=== PATIENT | female | born 1960 | race Caucasian/White ===

== ENCOUNTER 2020-09-16 20:18 | Inpatient (IN) | payer MEDICAID ==
[~2020-09-16] VITALS: Ht 180.3 cm; Wt 79.1 kg
--- NOTE | 2020-09-16 22:05 | NUR ---
PT PRESENTS TO ER FOR N/V, GENERALIZED PAIN, RIGHT FLANK PAIN, AND COUGH. PT STATES THIS HAS BEEN GOING ON FOR A WEEK, PT DID NOT RECEIVE COVID VACCINE, PT A/OX4 AT THIS TIME, PT HAD EMESIS BAG THAT HAD MODERATE AMOUNT OF VOMIT IN IT THAT WAS GREEN COLORED, PT STATES SHE IS COUGHING UP SOME YELLOW PHLEM.
[2020-09-16] MEDS ORDERED: SODIUM CHLORIDE 0.9% 1,000ML IVBOLUS ONE (22:30)
[2020-09-16] MEDS ORDERED: HYDROmorphone 1 MG/ML, 1ML INJ IVPush PRN (22:30)
[2020-09-16] MEDS ORDERED: HYDROmorphone 2 MG/ML, 1ML ONE (22:36)
[2020-09-16 22:57] LABS: BASOPHILS % (AUTO) 0 % (0-1); EOSINOPHILS % (AUTO) 0 % (1-7); LYMPHOCYTES % (AUTO) 19 % (22-44); MEAN CORPUSCULAR HEMOGLOBIN 31.5 pg (27.0-34.8); MEAN CORPUSCULAR HGB CONC 34.3 g/dL (32.4-35.8); MEAN PLATELET VOLUME 8.6 fL (7.4-10.4); MONOCYTES % (AUTO) 10 % (2-9); NEUTROPHILS % (AUTO) 71 % (42-75); PLATELET COUNT 130 x10^3/uL (130-400); RED CELL DISTRIBUTION WIDTH 12.4 % (9.6-15.2)
[2020-09-16 22:59] LABS: ALANINE AMINOTRANSFERASE 29 U/L (12-78); ALBUMIN 3.9 g/dL (3.4-5.0); ANION GAP 13 mmol/L (5-15); CALCIUM 8.6 mg/dL (8.5-10.1); CHLORIDE 98 mmol/L (98-107); CREATININE 1.33 mg/dL (0.55-1.02)
[2020-09-16 23:01] LABS: ALKALINE PHOSPHATASE 85 U/L (45-117); BILIRUBIN,TOTAL 0.4 mg/dL (0.2-1.0); TOTAL PROTEIN 8.6 g/dL (6.4-8.2)
[2020-09-17] MEDS ORDERED: DOXYCYCLINE 100 MG in DEXTROSE 5% 250 ML IV ONE (00:30)
[2020-09-17] MEDS ORDERED: SODIUM CHLORIDE 0.9% 1,000 ML IV SCH (00:30)
[2020-09-17 01:09] LABS: MICROSCOPIC INDICATED
[2020-09-17] MEDS ORDERED: ACETAMINOPHEN 500 MG TABLET ONE (01:56)
[2020-09-17] MEDS ORDERED: NS + 20MEQ KCL 0 ML IV ONE (01:57)
[2020-09-17] MEDS ORDERED: CEFTRIAXONE 1,000 MG in DEXTROSE 5% 50 ML IVPB ONE (02:00)
[2020-09-17] MEDS ORDERED: ACETAMINOPHEN 500 MG TABLET PO ONE (02:00)
[2020-09-17] MEDS ORDERED: POTASSIUM CHLORIDE 20 MEQ in SODIUM CHLORIDE 0.9% 250 ML IV ONE (02:00)
[2020-09-17] MEDS ORDERED: LABETALOL 5MG/ML, 20ML IVPush PRN (03:30)
[2020-09-17 03:38] VITALS: BP 105/61
[2020-09-17] MEDS: DEXAMETHASONE 4 MG/ML, 1ML IVPush SCH (04:31)
[2020-09-17] MEDS: ENOXAPARIN 40 MG/0.4 ML SQ SCH (04:31)
[2020-09-17 04:44] LABS: AMPHETAMINE SCREEN, URINE Negative (Negative); BARBITURATE SCREEN, URINE Negative (Negative); BENZODIAZEPINE SCREEN, URINE Negative (Negative); CANNABINOID SCREEN, URINE Positive (Negative); COCAINE SCREEN, URINE Negative (Negative); METHADONE SCREEN, URINE Negative (Negative); OPIATE SCREEN, URINE Positive (Negative)
[2020-09-17] MEDS: HYDROmorphone 2 MG/ML, 1ML IVPush PRN ×2 (04:45→22:36)
[2020-09-17 08:00] VITALS: BP 109/99
[2020-09-17] MEDS: DOXYCYCLINE 100MG TABLET PO SCH ×2 (09:00→20:22)
[2020-09-17 09:22] LABS: CHLORIDE 105 mmol/L (98-107)
[2020-09-17 09:26] LABS: ANION GAP 7 mmol/L (5-15)
[2020-09-17] MEDS ORDERED: DEXAMETHASONE 4 MG/ML, 5ML ONE (09:34)
[2020-09-17] MEDS ORDERED: HYDROcodone/APAP 5/325 TABLET PO PRN (12:00)
[2020-09-17 12:43] VITALS: BP 98/76
[2020-09-17] MEDS: ONDANSETRON 2MG/ML, 2ML IVPush PRN (15:01)
[2020-09-17] MEDS: ACETAMINOPHEN 325 MG TABLET PO PRN ×2 (15:01→20:22)
[2020-09-17] MEDS ORDERED: POTASSIUM PHOSPHATE 44 MEQ in SODIUM CHLORIDE 0.9% 500 ML IV ONE (16:30)
[2020-09-17 20:27] VITALS: BP 102/64
[2020-09-18] MEDS: ACETAMINOPHEN 325 MG TABLET PO PRN ×2 (00:03→00:04)
[2020-09-18 00:09] VITALS: BP 106/69
[2020-09-18] MEDS: CEFTRIAXONE 1,000 MG in DEXTROSE 5% 50 ML IVPB SCH (02:55)
[2020-09-18] MEDS: ENOXAPARIN 40 MG/0.4 ML SQ SCH (03:17)
[2020-09-18 06:52] LABS: CHLORIDE 102 mmol/L (98-107)
[2020-09-18 06:54] LABS: BASOPHILS % (AUTO) 0 % (0-1); EOSINOPHILS % (AUTO) 0 % (1-7); LYMPHOCYTES % (AUTO) 26 % (22-44); MEAN CORPUSCULAR HEMOGLOBIN 31.6 pg (27.0-34.8); MEAN CORPUSCULAR HGB CONC 34.7 g/dL (32.4-35.8); MONOCYTES % (AUTO) 6 % (2-9); NEUTROPHILS % (AUTO) 68 % (42-75); PLATELET COUNT 104 x10^3/uL (130-400); RED BLOOD COUNT 4.06 x10^6/uL (3.82-5.3); RED CELL DISTRIBUTION WIDTH 12.6 % (9.6-15.2)
[2020-09-18 06:56] LABS: ANION GAP 10 mmol/L (5-15); CALCIUM 8.1 mg/dL (8.5-10.1)
[2020-09-18 08:43] VITALS: BP 102/62
[2020-09-18] MEDS ORDERED: POTASSIUM CHLORIDE 40 MEQ in SODIUM CHLORIDE 0.9% 500 ML IV ONE (09:00)
[2020-09-18] MEDS ORDERED: MAGNESIUM SULFATE 3 GM in SODIUM CHLORIDE 0.9% 100 ML IV ONE (09:00)
[2020-09-18] MEDS: DEXAMETHASONE 4 MG/ML, 1ML IVPush SCH (09:52)
[2020-09-18] MEDS: ZINC SULFATE 220 MG CAPSULE PO SCH (09:53)
[2020-09-18] MEDS: DOXYCYCLINE 100MG TABLET PO SCH ×2 (09:53→21:00)
[2020-09-18] MEDS: CHOLECALCIFEROL 1,000 UNIT TABLET PO SCH (09:53)
[2020-09-18] MEDS: THIAMINE 100MG TABLET PO SCH ×2 (09:54→21:38)
[2020-09-18] MEDS ORDERED: REMDESIVIR 200 MG in SODIUM CHLORIDE 0.9% 250 ML IVPB ONE (12:00)
[2020-09-18 12:19] LABS: ALANINE AMINOTRANSFERASE 22 U/L (12-78); ALBUMIN 2.6 g/dL (3.4-5.0); ALKALINE PHOSPHATASE 56 U/L (45-117); BILIRUBIN, DIRECT < 0.1 mg/dL (0.1-0.2); BILIRUBIN,INDIRECT 0.2 mg/dL (0.0-2.0); BILIRUBIN,TOTAL 0.3 mg/dL (0.2-1.0); TOTAL PROTEIN 6.4 g/dL (6.4-8.2)
[2020-09-18 14:11] VITALS: BP 98/65
[2020-09-18] MEDS ORDERED: OMNIPAQUE 350 MG/ML, 100ML BOTTLE ONE (18:00)
[2020-09-18] MEDS: ASCORBIC ACID 500 MG TABLET PO SCH (18:09)
[2020-09-18 20:43] VITALS: BP 95/64
[2020-09-18] MEDS: MELATONIN 5 MG TABLET PO SCH (21:00)
[2020-09-18] MEDS: HYDROmorphone 2 MG/ML, 1ML IVPush PRN (21:39)
[2020-09-18] MEDS: ONDANSETRON 2MG/ML, 2ML IVPush PRN (22:39)
[2020-09-19 00:48] VITALS: BP 92/61
[2020-09-19] MEDS: CEFTRIAXONE 1,000 MG in DEXTROSE 5% 50 ML IVPB SCH (02:33)
[2020-09-19] MEDS: ENOXAPARIN 40 MG/0.4 ML SQ SCH (02:33)
[2020-09-19 04:31] LABS: BASOPHILS % (AUTO) 0 % (0-1); EOSINOPHILS % (AUTO) 0 % (1-7); LYMPHOCYTES % (AUTO) 22 % (22-44); MEAN CORPUSCULAR HEMOGLOBIN 31.5 pg (27.0-34.8); MEAN CORPUSCULAR HGB CONC 34.5 g/dL (32.4-35.8); MEAN PLATELET VOLUME 8.1 fL (7.4-10.4); MONOCYTES % (AUTO) 10 % (2-9); NEUTROPHILS % (AUTO) 69 % (42-75); PLATELET COUNT 121 x10^3/uL (130-400); RED BLOOD COUNT 4.21 x10^6/uL (3.82-5.3); RED CELL DISTRIBUTION WIDTH 12.4 % (9.6-15.2)
[2020-09-19 04:40] LABS: ALBUMIN 2.3 g/dL (3.4-5.0); ANION GAP 7 mmol/L (5-15); CALCIUM 8.2 mg/dL (8.5-10.1); CHLORIDE 102 mmol/L (98-107)
[2020-09-19 04:44] LABS: ALANINE AMINOTRANSFERASE 34 U/L (12-78); ALKALINE PHOSPHATASE 58 U/L (45-117); BILIRUBIN,TOTAL 0.4 mg/dL (0.2-1.0); CREATININE 0.52 mg/dL (0.55-1.02); TOTAL PROTEIN 6.3 g/dL (6.4-8.2)
[2020-09-19 07:38] VITALS: BP 104/65
[2020-09-19] MEDS ORDERED: POTASSIUM PHOSPHATE 22 MEQ in SODIUM CHLORIDE 0.9% 500 ML IV ONE (10:00)
[2020-09-19] MEDS: ASCORBIC ACID 500 MG TABLET PO SCH ×2 (10:05→17:00)
[2020-09-19] MEDS: ZINC SULFATE 220 MG CAPSULE PO SCH (10:06)
[2020-09-19] MEDS: THIAMINE 100MG TABLET PO SCH ×2 (10:06→21:29)
[2020-09-19] MEDS: CHOLECALCIFEROL 1,000 UNIT TABLET PO SCH (10:06)
[2020-09-19] MEDS: DEXAMETHASONE 4 MG TABLET PO SCH (10:06)
[2020-09-19] MEDS: DOXYCYCLINE 100MG TABLET PO SCH ×2 (10:06→21:29)
[2020-09-19] MEDS: HYDROmorphone 2 MG/ML, 1ML IVPush PRN ×3 (10:20→22:44)
[2020-09-19 10:36] LABS: D-DIMER 0.37 ug/mlFEU (0.00-0.52)
[2020-09-19 10:43] LABS: C-REACTIVE PROTEIN, QUANT 6.9 mg/dL (0.02-0.49)
[2020-09-19 11:10] VITALS: BP 92/61
[2020-09-19] MEDS: ONDANSETRON 2MG/ML, 2ML IVPush PRN ×2 (12:30→20:02)
[2020-09-19 12:55] VITALS: BP 102/62
[2020-09-19] MEDS: REMDESIVIR 100 MG in SODIUM CHLORIDE 0.9% 250 ML IVPB SCH (13:04)
[2020-09-19] MEDS ORDERED: GUAIFENESIN/COD200MG-20MG/10ML LIQUID PO PRN (17:30)
[2020-09-19 20:07] VITALS: BP 91/58
[2020-09-19] MEDS: MELATONIN 5 MG TABLET PO SCH (21:00)
[2020-09-20 02:46] VITALS: BP 98/60
[2020-09-20] MEDS: CEFTRIAXONE 1,000 MG in DEXTROSE 5% 50 ML IVPB SCH (02:57)
[2020-09-20] MEDS: ENOXAPARIN 40 MG/0.4 ML SQ SCH (02:57)
[2020-09-20 06:08] LABS: ALANINE AMINOTRANSFERASE 60 U/L (12-78); ALBUMIN 2.4 g/dL (3.4-5.0); ANION GAP 9 mmol/L (5-15); CALCIUM 8.7 mg/dL (8.5-10.1); CHLORIDE 105 mmol/L (98-107)
[2020-09-20 06:11] LABS: ALKALINE PHOSPHATASE 63 U/L (45-117); BILIRUBIN,TOTAL 0.3 mg/dL (0.2-1.0); CREATININE 0.42 mg/dL (0.55-1.02); TOTAL PROTEIN 6.4 g/dL (6.4-8.2)
[2020-09-20] MEDS: HYDROmorphone 2 MG/ML, 1ML IVPush PRN (06:39)
[2020-09-20] MEDS: ONDANSETRON 2MG/ML, 2ML IVPush PRN (06:50)
[2020-09-20 08:11] VITALS: BP 89/52
[2020-09-20] MEDS: ZINC SULFATE 220 MG CAPSULE PO SCH (10:55)
[2020-09-20] MEDS: THIAMINE 100MG TABLET PO SCH ×2 (10:55→21:04)
[2020-09-20] MEDS: ASCORBIC ACID 500 MG TABLET PO SCH ×2 (10:55→17:15)
[2020-09-20] MEDS: DEXAMETHASONE 4 MG TABLET PO SCH (10:55)
[2020-09-20] MEDS: DOXYCYCLINE 100MG TABLET PO SCH ×2 (10:56→21:03)
[2020-09-20] MEDS: CHOLECALCIFEROL 1,000 UNIT TABLET PO SCH (10:56)
[2020-09-20] MEDS: REMDESIVIR 100 MG in SODIUM CHLORIDE 0.9% 250 ML IVPB SCH (12:27)
[2020-09-20] MEDS ORDERED: HYDROmorphone 2 MG/ML, 1ML IVPush PRN (12:30)
[2020-09-20 13:02] VITALS: BP 93/61
[2020-09-20] MEDS: APAP/CODEINE 300/30MG TABLET PO PRN ×2 (13:49→21:29)
[2020-09-20] MEDS: MELATONIN 5 MG TABLET PO SCH (21:00)
[2020-09-20] MEDS: ACETAMINOPHEN 325 MG TABLET PO PRN (21:03)
[2020-09-20 21:30] VITALS: BP 113/75
[2020-09-21 01:14] VITALS: BP 136/72
[2020-09-21] MEDS: CEFTRIAXONE 1,000 MG in DEXTROSE 5% 50 ML IVPB SCH (02:28)
[2020-09-21] MEDS: APAP/CODEINE 300/30MG TABLET PO PRN ×4 (02:28→21:03)
[2020-09-21] MEDS: ENOXAPARIN 40 MG/0.4 ML SQ SCH (03:14)
[2020-09-21 06:57] LABS: ANION GAP 7 mmol/L (5-15); CHLORIDE 103 mmol/L (98-107)
[2020-09-21 07:00] LABS: CALCIUM 8.7 mg/dL (8.5-10.1)
[2020-09-21 07:01] LABS: ALANINE AMINOTRANSFERASE 91 U/L (12-78); ALBUMIN 2.5 g/dL (3.4-5.0); ALKALINE PHOSPHATASE 71 U/L (45-117); BILIRUBIN,TOTAL 0.3 mg/dL (0.2-1.0); CREATININE 0.53 mg/dL (0.55-1.02); TOTAL PROTEIN 6.4 g/dL (6.4-8.2)
[2020-09-21 07:49] VITALS: BP 114/81
[2020-09-21] MEDS: DOXYCYCLINE 100MG TABLET PO SCH ×2 (09:08→21:03)
[2020-09-21] MEDS: THIAMINE 100MG TABLET PO SCH ×2 (09:08→21:03)
[2020-09-21] MEDS: ASCORBIC ACID 500 MG TABLET PO SCH (09:08)
[2020-09-21] MEDS: ZINC SULFATE 220 MG CAPSULE PO SCH (09:08)
[2020-09-21] MEDS: CHOLECALCIFEROL 1,000 UNIT TABLET PO SCH (09:08)
[2020-09-21] MEDS: DEXAMETHASONE 4 MG TABLET PO SCH (09:08)
[2020-09-21 12:05] VITALS: BP 106/67
[2020-09-21] MEDS: ONDANSETRON 2MG/ML, 2ML IVPush PRN (13:08)
[2020-09-21] MEDS: REMDESIVIR 100 MG in SODIUM CHLORIDE 0.9% 250 ML IVPB SCH (13:08)
[2020-09-21] MEDS: PANTOPRAZOLE 40MG TABLET PO SCH ×2 (15:52→17:12)
[2020-09-21 20:20] VITALS: BP 105/77
[2020-09-21] MEDS: MELATONIN 5 MG TABLET PO SCH (21:00)
[2020-09-22 01:05] VITALS: BP 117/71
[2020-09-22] MEDS: APAP/CODEINE 300/30MG TABLET PO PRN ×4 (01:58→21:28)
[2020-09-22] MEDS: CEFTRIAXONE 1,000 MG in DEXTROSE 5% 50 ML IVPB SCH (01:58)
[2020-09-22 05:52] LABS: BASOPHILS % (AUTO) 0 % (0-1); EOSINOPHILS % (AUTO) 0 % (1-7); LYMPHOCYTES % (AUTO) 11 % (22-44); MEAN CORPUSCULAR HEMOGLOBIN 31.6 pg (27.0-34.8); MEAN CORPUSCULAR HGB CONC 34.8 g/dL (32.4-35.8); MEAN PLATELET VOLUME 8.1 fL (7.4-10.4); MONOCYTES % (AUTO) 15 % (2-9); NEUTROPHILS % (AUTO) 74 % (42-75); PLATELET COUNT 278 x10^3/uL (130-400); RED CELL DISTRIBUTION WIDTH 12.4 % (9.6-15.2)
[2020-09-22 05:58] LABS: CHLORIDE 103 mmol/L (98-107)
[2020-09-22 06:04] LABS: ALANINE AMINOTRANSFERASE 92 U/L (12-78); ALBUMIN 2.4 g/dL (3.4-5.0); ALKALINE PHOSPHATASE 71 U/L (45-117); ANION GAP 7 mmol/L (5-15); BILIRUBIN,TOTAL 0.3 mg/dL (0.2-1.0); CALCIUM 8.4 mg/dL (8.5-10.1); CREATININE 0.48 mg/dL (0.55-1.02); TOTAL PROTEIN 6.2 g/dL (6.4-8.2)
[2020-09-22] MEDS: PANTOPRAZOLE 40MG TABLET PO SCH ×2 (07:07→16:36)
[2020-09-22] MEDS: ENOXAPARIN 40 MG/0.4 ML SQ SCH (07:07)
[2020-09-22] MEDS: ASCORBIC ACID 500 MG TABLET PO SCH (08:03)
[2020-09-22] MEDS: ZINC SULFATE 220 MG CAPSULE PO SCH (08:04)
[2020-09-22] MEDS: CHOLECALCIFEROL 1,000 UNIT TABLET PO SCH (08:04)
[2020-09-22] MEDS: THIAMINE 100MG TABLET PO SCH ×3 (08:04→21:27)
[2020-09-22] MEDS: DEXAMETHASONE 4 MG TABLET PO SCH (08:50)
[2020-09-22] MEDS: DOXYCYCLINE 100MG TABLET PO SCH ×2 (08:50→21:27)
[2020-09-22 09:02] VITALS: BP 107/67
[2020-09-22 12:00] VITALS: BP 121/62
[2020-09-22] MEDS: REMDESIVIR 100 MG in SODIUM CHLORIDE 0.9% 250 ML IVPB SCH (12:15)
[2020-09-22 20:38] VITALS: BP 120/74
[2020-09-22] MEDS: MELATONIN 5 MG TABLET PO SCH (23:30)
[2020-09-23] VITALS: BP 123/74
[2020-09-23 00:31] VITALS: BP 111/70
[2020-09-23] MEDS: CEFTRIAXONE 1,000 MG in DEXTROSE 5% 50 ML IVPB SCH (02:07)
[2020-09-23] MEDS: ENOXAPARIN 40 MG/0.4 ML SQ SCH (07:54)
[2020-09-23] MEDS: PANTOPRAZOLE 40MG TABLET PO SCH ×2 (07:54→16:57)
[2020-09-23] MEDS: APAP/CODEINE 300/30MG TABLET PO PRN ×3 (07:54→20:46)
[2020-09-23 07:56] VITALS: BP 125/63
[2020-09-23] MEDS: THIAMINE 100MG TABLET PO SCH ×2 (08:00→20:45)
[2020-09-23] MEDS: CHOLECALCIFEROL 1,000 UNIT TABLET PO SCH (08:00)
[2020-09-23] MEDS: ASCORBIC ACID 500 MG TABLET PO SCH (08:00)
[2020-09-23] MEDS: ZINC SULFATE 220 MG CAPSULE PO SCH (10:17)
[2020-09-23] MEDS: DEXAMETHASONE 4 MG TABLET PO SCH (10:17)
[2020-09-23] MEDS: DOXYCYCLINE 100MG TABLET PO SCH ×2 (10:17→20:45)
[2020-09-23 14:09] VITALS: BP 124/66
[2020-09-23 21:48] VITALS: BP 101/68
[2020-09-23] MEDS: MELATONIN 5 MG TABLET PO SCH (23:50)
[2020-09-24 02:27] VITALS: BP 118/62
[2020-09-24] MEDS: CEFTRIAXONE 1,000 MG in DEXTROSE 5% 50 ML IVPB SCH (02:33)
[2020-09-24] MEDS: APAP/CODEINE 300/30MG TABLET PO PRN ×2 (02:34→09:51)
[2020-09-24] MEDS: PANTOPRAZOLE 40MG TABLET PO SCH ×2 (06:36→19:32)
[2020-09-24] MEDS: ENOXAPARIN 40 MG/0.4 ML SQ SCH (06:36)
[2020-09-24 08:30] VITALS: BP 113/77
[2020-09-24] MEDS: CHOLECALCIFEROL 1,000 UNIT TABLET PO SCH (09:40)
[2020-09-24] MEDS: DEXAMETHASONE 4 MG TABLET PO SCH (09:40)
[2020-09-24] MEDS: DOXYCYCLINE 100MG TABLET PO SCH ×2 (09:41→20:43)
[2020-09-24] MEDS: ASCORBIC ACID 500 MG TABLET PO SCH (09:41)
[2020-09-24] MEDS: ZINC SULFATE 220 MG CAPSULE PO SCH (09:41)
[2020-09-24] MEDS: THIAMINE 100MG TABLET PO SCH ×2 (09:41→20:43)
[2020-09-24 14:20] VITALS: BP 141/86
[2020-09-24] MEDS ORDERED: THIA100T67 PO (14:49)
[2020-09-24] MEDS ORDERED: ZINC220C8 PO (14:49)
[2020-09-24] MEDS ORDERED: ASCO500T9 PO (14:49)
[2020-09-24] MEDS ORDERED: CHOL10003 PO (14:49)
[2020-09-24] MEDS ORDERED: KETOROLAC 30 MG/1 ML IVPush PRN (16:30)
[2020-09-24] MEDS: ACETAMINOPHEN 325 MG TABLET PO PRN (17:19)
[2020-09-24] MEDS: DIPHENHYDRAMINE 50 MG/ML, 1ML IVPush PRN (19:32)
[2020-09-24] MEDS: METOCLOPRAMIDE 5 MG/ML, 2ML IVPush SCH (19:33)
[2020-09-24] MEDS: MELATONIN 5 MG TABLET PO SCH (20:43)
[2020-09-24 21:15] VITALS: BP 109/79
[2020-09-25 00:16] VITALS: BP 106/80
[2020-09-25] MEDS: CEFTRIAXONE 1,000 MG in DEXTROSE 5% 50 ML IVPB SCH (02:06)
[2020-09-25] MEDS: METOCLOPRAMIDE 5 MG/ML, 2ML IVPush SCH ×5 (02:06→23:07)
[2020-09-25] MEDS: APAP/CODEINE 300/30MG TABLET PO PRN (02:08)
[2020-09-25 08:24] VITALS: BP 128/75
[2020-09-25] MEDS: ZINC SULFATE 220 MG CAPSULE PO SCH (09:08)
[2020-09-25] MEDS: ASCORBIC ACID 500 MG TABLET PO SCH (09:08)
[2020-09-25] MEDS: DOXYCYCLINE 100MG TABLET PO SCH ×2 (09:08→20:21)
[2020-09-25] MEDS: THIAMINE 100MG TABLET PO SCH ×2 (09:08→20:21)
[2020-09-25] MEDS: ENOXAPARIN 40 MG/0.4 ML SQ SCH (09:08)
[2020-09-25] MEDS: PANTOPRAZOLE 40MG TABLET PO SCH ×2 (09:08→17:32)
[2020-09-25] MEDS: DEXAMETHASONE 4 MG TABLET PO SCH (09:09)
[2020-09-25] MEDS: CHOLECALCIFEROL 1,000 UNIT TABLET PO SCH (09:09)
[2020-09-25] MEDS: DIPHENHYDRAMINE 50 MG/ML, 1ML IVPush PRN ×4 (09:10→23:07)
[2020-09-25 12:59] VITALS: BP 152/88
[2020-09-25] MEDS: ACETAMINOPHEN 325 MG TABLET PO PRN ×2 (15:01→20:28)
[2020-09-25 20:20] VITALS: BP 110/74
[2020-09-25] MEDS: MELATONIN 5 MG TABLET PO SCH (23:07)
[2020-09-26] MEDS: CEFTRIAXONE 1,000 MG in DEXTROSE 5% 50 ML IVPB SCH (02:39)
[2020-09-26 02:48] VITALS: BP 118/70
[2020-09-26 05:08] LABS: CREATININE 0.67 mg/dL (0.55-1.02)
[2020-09-26] MEDS: METOCLOPRAMIDE 5 MG/ML, 2ML IVPush SCH ×2 (05:38→11:20)
[2020-09-26] MEDS: DIPHENHYDRAMINE 50 MG/ML, 1ML IVPush PRN ×2 (05:38→11:20)
[2020-09-26 08:17] VITALS: BP 125/80
[2020-09-26] MEDS: ENOXAPARIN 40 MG/0.4 ML SQ SCH (08:44)
[2020-09-26] MEDS: PANTOPRAZOLE 40MG TABLET PO SCH (08:45)
[2020-09-26] MEDS: CHOLECALCIFEROL 1,000 UNIT TABLET PO SCH (08:45)
[2020-09-26] MEDS: ZINC SULFATE 220 MG CAPSULE PO SCH (08:45)
[2020-09-26] MEDS: ACETAMINOPHEN 325 MG TABLET PO PRN (08:45)
[2020-09-26] MEDS: THIAMINE 100MG TABLET PO SCH (08:45)
[2020-09-26] MEDS: DOXYCYCLINE 100MG TABLET PO SCH (08:45)
[2020-09-26] MEDS: ASCORBIC ACID 500 MG TABLET PO SCH (08:45)
[2020-09-26] MEDS: DEXAMETHASONE 4 MG TABLET PO SCH (11:20)
[2020-09-26 13:56] VITALS: BP 136/79
== END 2020-09-26 16:12 | disposition home or self-care (01) | DRG 720 ==
LOC: ED 09-17 01:09 → EDIP 09-17 02:04 → 4WST 09-17 03:36
PROVIDERS: ADMIT Family Medicine; ATTEND Internal Medicine
PROC: XW033E5 Introduction of Remdesivir Anti-infective into Peripheral Vein, Percutaneous Approach, New Technology Group 5 (ICD-10-PCS; principal; 2020-09-18)
DX: A41.89 Other specified sepsis (principal); J96.01 Acute respiratory failure with hypoxia; J12.82 Pneumonia due to coronavirus disease 2019; N17.0 Acute kidney failure with tubular necrosis; E83.39 Other disorders of phosphorus metabolism; E87.1 Hypo-osmolality and hyponatremia; Z66 Do not resuscitate; D72.819 Decreased white blood cell count, unspecified; E83.42 Hypomagnesemia; E86.0 Dehydration; E86.1 Hypovolemia; E87.6 Hypokalemia; G43.909 Migraine, unspecified, not intractable, without status migrainosus; I25.2 Old myocardial infarction; N10 Acute pyelonephritis; N28.89 Other specified disorders of kidney and ureter; Q67.6 Pectus excavatum; R65.20 Severe sepsis without septic shock; U07.1 COVID-19; Z59.0 Homelessness; Z82.5 Family history of asthma and other chronic lower respiratory diseases; Z87.820 Personal history of traumatic brain injury; Z88.5 Allergy status to narcotic agent; Z88.0 Allergy status to penicillin; Z88.2 Allergy status to sulfonamides; Z88.8 Allergy status to other drugs, medicaments and biological substances
CPT/HCPCS: 36415; 70450; 71045; 71275; 74176; 80048; 80053; 80076; 80307; 81001; 82565; 82728; 83605; 83615; 83735; 84100; 84145; 85025; 85379; 85384; 86140; 87040; 87086; 93005; 96374; 99285; G0378; J0696; J1100; J1170; J1650; J1885; J2405; J3475; J3480; J7060; Q9967; U0005; J1200; J2765; J7030; J7040; J7050; U0003